=== PATIENT | male | born 2005 | race Caucasian/White ===

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

== ENCOUNTER 2024-11-13 13:11 | Emergency (ER) | payer OTHER, SELFPAY ==
--- NOTE | ~2024-11-13 | XR_ITS ---
EXAMINATION: XR foot RT min 3V, 11/13/2024 13:46 CDT HISTORY: RT foot pain[facility]bruising/swelling [facility]PARISON: No comparisons available. Findings: No acute fracture or malalignment. No significant degenerative changes. Soft tissues unremarkable. Impression: No acute fracture or malalignment. Reviewed, dictated and finalized at location A. Impression: No acute fracture or malalignment.
--- NOTE | ~2024-11-13 | XR_ITS ---
EXAMINATION: XR ankle RT min 3V, 11/13/2024 13:46 CDT HISTORY: RT lat ankle pain/bruising/swelling landed wrong yesterday COMPARISON: No comparisons available. Findings: No acute fracture or malalignment. No significant degenerative changes. Soft tissue swelling Impression: No acute fracture or malalignment. Reviewed, dictated and finalized at location A. Impression: No acute fracture or malalignment.
[2024-11-13 13:29] VITALS: BP 137/68; PULSE 104; RESP 18; TEMP 36.8; O2SAT 99
--- NOTE | 2024-11-13 13:38 | ED.LOWEXIN ---
HPI - Extremity Injury (Lower) General Chief Complaint: Extremity Injury, Lower Stated Complaint: Right Ankle Pain Patient presents to the [facility] accompanied by mother with complaints significant swelling and bruising to right ankle and foot that began last night. [facility] [employer] [facility] and on the [place] board and injured this ankle and foot. Patient has been using crutches and Fuentes wrap but area significantly painful with some numbness and tingling. Patient does also report fatigue, nasal congestion, nasal drainage, chills, headache that began 6 7 days ago. Several people around him are ill with similar symptoms no specific diagnoses. Using some [id number] medications for symptoms. Denies fever, shortness of breath, dizziness, nausea, vomiting, diarrhea. Related Data Allergies Allergy/AdvReac Type Severity Reaction Status Date / Time No Known Allergies Allergy Verified 11/13/24 13:45 Review of Systems Constitutional: Constitutional: Reports as per HPI, Reports chills, Reports fatigue, Denies fever(s) and Denies weakness Eyes: Eyes: Reports no additional eye complaints ENT: Reports as per HPI, Denies vertigo, Denies dizziness, Reports nasal congestion and Denies sore throat Comments: Nasal drainage, sinus pain Respiratory: Respiratory: Reports as per HPI, Reports chest congestion, Denies cough, Denies dyspnea and Denies wheezing Gastrointestinal: Gastrointestinal: Reports no additional gastrointestinal complaints Genitourinary: Genitourinary: Reports no additional male genitourinary complaints Musculoskeletal: Musculoskeletal: Reports as per HPI, Reports myalgias, Reports arthralgias, Reports joint swelling and Denies muscle cramps Integumentary/Breasts: Skin/Breast: Reports as per HPI, Denies pruritus, Denies rash and Denies skin ulcer Comments: bruising right foot and ankle Neurologic: Reports as per HPI, Denies vertigo, Denies dizziness, Reports headache(s), Reports numbness (right toes ) and Denies weakness Psychiatric: Psychiatric: Reports no additional psychiatric complaints Endocrine: Endocrine: Reports no additional endocrine complaints Hematologic/Lymphatic: Hematologic/Lymphatic: Reports no additional hematologic/lymphatic complaints Allergic/Immunologic: Allergic/Immunologic: Reports as per HPI Comments: seasonal allergies Exam Const: General: healthy appearing and no acute distress Nutritional Appearance: well nourished Orientation/consciousness: patient oriented x3 Limitations: no limitations HENMT: Head: normal to inspection Ears: external ears normal and TM's normal bilaterally Face/Nose/Sinus: Normal external nose present and nares abnormal Face and sinus: normal facial exam and sinus tenderness frontal Mouth: Yes Normal oral and palatal mucosa present, Yes lip normal and Yes moist mucous membranes Throat: posterior oropharynx abnormal Other: moderate erythema and edema. no exudate Neck: Neck: normal visual inspection and no lymphadenopathy Resp: Effort & Inspection: normal respiratory effort Auscultation: clear to auscultation bilaterally Cardio: Rate: regular rate Rhythm: regular rhythm Skin: General skin exam: No normal color Rashes: no rashes Wounds: no wounds Other: diffuse swelling and ecchymosis over right lateral ankle and foot Neuro: General: patient oriented x3 and moves all extremities Speech: normal speech Gait exam (Neuro): Normal gait present ( using crutches) Extrem: Right lower extremity: ankle Details: abnormal to inspection, tenderness, swelling, abnormal ROM and ecchymosis; achilles tendon exam normal and foot Details: normal capillary refill, abnormal to inspection, tenderness, toes with normal ROM, edema, ecchymosis, vascular exam Details: dorsalis pedis pulse present, posterior tibial pulse present and normal capillary refill and motor-sensory exam Details: two point discrimination normal, light-touch normal and pin-prick normal; ROM of toes normal Psych: Mental Status: mental status grossly normal Affect: normal affect Attitude: cooperative Course Course Level of Care: Express Care Visit Vital Signs Vital signs: Vital Signs Temperature 98.2 F 11/13/24 13:29 Pulse Rate 104 H 11/13/24 13:29 Respiratory Rate 18 11/13/24 13:29 Blood Pressure 137/68 11/13/24 13:29 Pulse Oximetry 99 11/13/24 13:29 Oxygen Delivery Room Air 11/13/24 13:29 Temperature 98.2 F 11/13/24 13:29 Pulse Rate 104 H 11/13/24 13:29 Respiratory Rate 18 11/13/24 13:29 Blood Pressure 137/68 11/13/24 13:29 Pulse Oximetry 99 11/13/24 13:29 Oxygen Delivery Room Air 11/13/24 13:29 MDM - Extremity Injury (Lower) MDM Narrative Medical decision making narrative: 6 days of cold-like symptoms worsening. Will place patient on amoxicillin continue OTC medications. X-rays of foot and ankle ordered while in Express Care The patient was evaluated by myself in the [facility]. History is obtained from patient who is an independent historian and physical exam was performed. Available medical records were reviewed at this time. Exam findings show no acute concerns or changes; patient is non-toxic appearing and is in no distress. Patient is appropriate for outpatient treatment and follow-up. I have evaluated and discussed social determinants of health with the patient that could potentially impact subsequent diagnosis and treatment plans. Differential diagnosis and treatment plan were discussed with the patient. Patient agrees with discussion and after shared medical decision making agrees with plan of care. All questions were answered to the patient's satisfaction. Differential Diagnosis Differential diagnosis: Likely ankle sprain and strain, puncture wound of foot, fracture of toe, ankle fracture and other ( COVID, flu, sinusitis, upper respiratory infection) Medical Records Attestation: I reviewed the patient's medical records. Lab Data Attestation: I reviewed the patient's lab results. Labs: Lab Results 11/13/24 Range/Units 14:00 POC Influenza A Ag Negative (Negative) POC Influenza B Ag Negative (Negative) POC SARS CoV-2 Ag Negative (Negative) Imaging Data Attestation: I personally reviewed and interpreted this imaging study as follows: My impression: no abnormalities or fracture noted in foot or ankle Radiologist's impression: Impression: No acute fracture or malalignment. Reviewed, dictated and finalized at location A. Discharge Plan Discharge Clinical Impression: Severe sprain of right ankle, Sinusitis Patient Disposition: Home Condition: Stable Instructions: Antibiotic Form, Ankle Sprain (ED), Ankle Strain (ED) Additional Instructions: Take the antibiotics as directed for the entire course. Do not miss any doses. What you are taking antibiotics and is recommended to take a probiotic or have yogurt daily to return the good gut bacteria to your system. This can also help with acute diarrhea while taking antibiotics. A can take 24-48 hours for the antibiotics the cake in to relieve your symptoms continue to take these medications to help with various symptoms: Tylenol or Motrin for pain, headache, or fever Flonase/fluticasone or Nasacort/triamcinolone nasal spray- helps with congestion and nasal drainage. Sudafed/pseudoephedrine helps with sinus pain and congestion. Caution with high blood pressure. Use a humidifier or vaporizer at night. Drink plenty of water. 8-10 glasses per day. Mucinex/guaifenesinas directed and be sure to take with 8oz of water. Warm compresses over the forehead and cheeks to promote sinus drainage. Return to urgent care or go to the ER for new or worsening symptoms. Follow up with Primary provider if not improved after 1 week. Xray showed no fracture. Minimize activities that aggravate the condition The RICE protocol. Follow the RICE protocol as soon as possible after your injury: Rest your affected limb by not walking on it/not using this. Ice should be immediately applied to keep the swelling down. It can be used for 20 to 30 minutes, three or four times daily. Do not apply ice directly to your skin. Gentle range of motion exercises as tolerated. Compression dressings, bandages or fuentes-wraps will immobilize and support your injured limb Elevate affected area above the level of your heart if possible as often as possible during the first 48 hours then as needed for increased swelling. Medication: Nonsteroidal anti-inflammatory drugs (NSAIDs) such as ibuprofen and naproxen can help control pain and swelling. Because they improve function by both reducing swelling and controlling pain, they are a better option for mild sprains than narcotic pain medicines. Please schedule a follow-up visit with your personal physician for further evaluation and treatment within 1week OR If your symptoms persist, change or worsen significantly before you can contact your personal physician then please, without delay, go to the emergency department for further evaluation. Patient Language: Mozambican Prescriptions: New amoxicillin 875 mg tablet 875 mg PO Q12H Qty: 20 0RF Follow-up/Referrals: PHYSICIAN,PAINT MIXER MACHINE [Primary Care Provider, Internal Medicine] Time of Disposition: 14:25
[2024-11-13 14:05] LABS: EDCOVIDSCREEN Negative (Negative); EDINFLUASCREEN Negative (Negative); EDINFLUBSCREEN Negative (Negative)
== END 2024-11-13 14:42 | disposition home or self-care (01) ==
PROVIDERS: Emergency Provider Nurse Practitioner Family
DX: M25.571 Pain in right ankle and joints of right foot (principal); J32.9 Chronic sinusitis, unspecified; Z20.822 Contact with and (suspected) exposure to COVID-19
CPT/HCPCS: 73610; 73630; 87426; 87804; 99213; G0463

== ENCOUNTER 2025-01-06 18:22 | Emergency (ER) | payer OTHER, SELFPAY ==
--- NOTE | ~2025-01-06 | CT_ITS ---
CT abdomen pelvis w con INDICATION:RLQ abd pain . COMPARISON: None. TECHNIQUE: Axial images of the abdomen and pelvis were obtained following infusion of 100 mL Isovue 300. Dose optimization technique was utilized. FINDINGS: The lung bases are clear. The liver parenchyma is unremarkable. No intrahepatic mass or ductal dilatation is evident. The gallbladder is unremarkable. The pancreas and spleen are normal in appearance. The adrenal glands are symmetric in size. The kidneys demonstrate symmetric uptake and excretion of contrast. No cystic mass is evident. There is no solid mass. There is no hydronephrosis. Evaluation of the stomach and bowel loops are limited due to lack of oral contrast. The appendix is normal in appearance. Bowel loops are normal in caliber. There are diffuse stool retention may represent constipation. The bladder and rectum are normal. No free intraperitoneal fluid or air is evident. There is no significant retroperitoneal lymphadenopathy. The aorta, visceral vessels and renal arteries demonstrate normal caliber and patency. The lower thoracic and lumbar vertebrae are in normal alignment. IMPRESSION: No acute abnormality is noted in the abdomen and pelvis. All CT scans at this facility are performed using low dose modulation techniques as appropriate to perform exam including the following: automated exposure control; use of iterative reconstruction technique; adjustment of the mA and/or kV according to patient size (this includes techniques or standardized protocols for targeted exams where dose is matched to indication/reason for exam). Reviewed, dictated and finalized at location S. ULTURIST IMPRESSION: No acute abnormality is noted in the abdomen and pelvis. All CT scans at this facility are performed using low dose modulation techniqu es as appropriate to perform exam including the following: automated exposure c ontrol; use of iterative reconstruction technique; adjustment of the mA and/or kV according to patient size (this includes techniques or standardized protocol s for targeted exams where dose is matched to indication/reason for exam).
[2025-01-06 18:34] VITALS: BP 130/61; PULSE 73; RESP 16; TEMP 36.6; O2SAT 100
--- NOTE | 2025-01-06 18:37 | ED.ABDPAIN ---
HPI - Abdominal Pain General Chief Complaint: Abdominal Pain <Kayla Sloan PA-C - Last Filed: 01/08/25 15:52> Stated Complaint: abd pain <Kayla Sloan PA-C - Last Filed: 01/08/25 15:52> Time Seen by Provider: 01/06/25 18:37 <Kayla Sloan PA-C - Last Filed: 01/08/25 15:52> Focused HPI: This is a 19 year old male that presents to the ER for right lower quadrant abdominal pain. Ongoing over the last couple of weeks. [facility] and prompted to be seen in the ER to r/o appendicitis. GENERAL: Well-appearing, well-nourished, and in no acute distress. HEAD: Normocephalic, atraumatic. CHEST: Clear to auscultation. ?No respiratory distress. HEART: Regular rate and rhythm.? NEURO: ?Alert and oriented x3. Patient screened in triage and initial orders placed.? ?Additional care and disposition to be based upon?diagnostic testing and treatment. <Kayla Sloan PA-C - Last Filed: 01/08/25 15:52> History of Present Illness HPI narrative: Agree with the HPI. Denies fevers, chills. Reports normal bowel movements. <DO Micheal Díaz Last Filed: 01/08/25 21:53> Related Data Allergies/Adverse Reactions: Allergies Allergy/AdvReac Type Severity Reaction Status Date / Time No Known Allergies Allergy Verified 01/06/25 18:37 <Kayla Sloan PA-C - Last Filed: 01/08/25 15:52> Review of Systems Review of Systems: Gen.: Denies fevers or chills Eyes: Denies eye pain or visual change ENT: Denies congestion Respiratory: Denies shortness of breath or cough CV: Denies chest pain or palpitations GI: As per HPI denies burning, urgency, frequency or hematuria Musculoskeletal: Denies back pain or muscle pain Neuro: Denies numbness, tingling, weakness or focal weakness Skin: Denies rash Except as documented, all other systems reviewed and negative <Indra Dupree DO - Last Filed: 01/08/25 21:53> All systems reviewed & are unremarkable except as noted in HPI and below <Kayla Sloan PA-C - Last Filed: 01/08/25 15:52> Exam Narrative: APPEARANCE: No acute distress, nontoxic, resting in bed EYES: EOMI HEENT: Normocephalic, atraumatic, OMM RESPIRATORY: No respiratory distress Clear to auscultation bilaterally with no rhonchi wheezing or rales. CARDIOVASCULAR: Regular rate and rhythm without murmurs rubs or gallops. ABDOMINAL: Soft, mild right lower quadrant tenderness to palpation, nondistended, no rebound or guarding MUSCULOSKELETAl: Moves all extremities. No clubbing, cyanosis or edema. NEURO: Awake and alert. Following commands, speech normal, no focal deficits SKIN:: Warm, dry. No rashes lesions or abrasions PSYCHIATRIC: Normal affect/mood, <Indra Dupree DO - Last Filed: 01/08/25 21:53> Course Vital Signs Vital signs: Vital Signs Temperature 98 F 01/06/25 18:34 Pulse Rate 73 01/06/25 18:34 Respiratory Rate 16 01/06/25 18:34 Blood Pressure 130/61 01/06/25 18:34 Pulse Oximetry 100 01/06/25 18:34 Oxygen Delivery Room Air 01/06/25 18:34 Temperature 98 F 01/06/25 18:34 Pulse Rate 63 01/06/25 20:47 Respiratory Rate 16 01/06/25 20:47 Blood Pressure 117/73 01/06/25 20:47 Pulse Oximetry 100 01/06/25 20:47 Oxygen Delivery Room Air 01/06/25 18:34 <Kayla Sloan PA-C - Last Filed: 01/08/25 15:52> Vital Signs Temperature 98 F 01/06/25 18:34 Pulse Rate 73 01/06/25 18:34 Respiratory Rate 16 01/06/25 18:34 Blood Pressure 130/61 01/06/25 18:34 Pulse Oximetry 100 01/06/25 18:34 Oxygen Delivery Room Air 01/06/25 18:34 Temperature 98 F 01/06/25 18:34 Pulse Rate 63 01/06/25 20:47 Respiratory Rate 16 01/06/25 20:47 Blood Pressure 117/73 01/06/25 20:47 Pulse Oximetry 100 01/06/25 20:47 Oxygen Delivery Room Air 01/06/25 18:34 <Indra Dupree DO - Last Filed: 01/08/25 21:53> MDM - Abdominal Pain MDM Narrative Medical decision making narrative: 19-year-old male Presenting for right lower quadrant abdominal pain for a couple weeks. On initial evaluation patient was in no acute distress afebrile, hemodynamic stable. Differentials include but are not limited to: Appendicitis, constipation, IBD, IBS, ureterolithiasis, enterocolitis, colitis, hernia Notable exam findings: Mild right lower quadrant tenderness palpation without rebound or guarding. Notable lab findings: CBC and CMP without significant abnormality. UA not consistent with a UTI. Notable imaging findings: CT abdomen/pelvis showed no acute abnormalities, may have shown some constipation. Suspect patient's pain may be due to constipation. He was educated on bowel regimen including MiraLax. He was advised follow-up with his PCP in the next week for re-evaluation. Patient and family were agreeable to this plan. Given strict return precautions. <Indra Dupree DO - Last Filed: 01/08/25 21:53> Medical Records Attestation: I reviewed the patient's medical records. <Indra Dupree DO - Last Filed: 01/08/25 21:53> Lab Data Attestation: I reviewed the patient's lab results. <Indra Dupree DO - Last Filed: 01/08/25 21:53> Result diagrams: 01/06/25 18:39 01/06/25 18:39 <Kayla Sloan PA-C - Last Filed: 01/08/25 15:52> Labs: Lab Results 01/06/25 01/06/25 Range/Units 18:39 19:14 WBC 6.5 (4.5-10.0) K/mm3 RBC 4.80 (4.6-6.20) M/mm3 Hgb 14.7 (14.0-18.0) g/dL Hct 42.1 (42.0-52.0) % MCV 87.7 (80-100) fl MCH 30.6 (26-34) pg MCHC 34.9 (32-36) g/dl RDW 12.0 (11.5-14.5) % Plt Count 244 (150-375) k/mm3 MPV 9.2 (7.4-10.4) fl Immature Gran % (Auto) 0.2 (0-0.5) % Neut % (Auto) 46.8 (45.5-73.1) % Lymph % (Auto) 45.1 H (18.3-44.2) % [place] % (Auto) 5.7 (2.6-8.5) % Eos % (Auto) 1.7 (0-4.4) % Baso % (Auto) 0.5 (0.2-1.2) % Lymph # (Auto) 2.92 (0.9-3.2) K/mm3 [place] # (Auto) 0.4 (0.1-0.6) K/mm3 Eos # (Auto) 0.1 (0-0.3) K/mm3 Baso # (Auto) 0.0 (0.0-0.1) K/mm3 Abs Immat Gran (auto) 0.01 (0.00-0.031) K/mm3 Absolute Neuts (auto) 3.0 (1.3-6.7) K/mm3 Absolute Nucleated RBC 0.000 (0.0-0.012) K/mm3 Nucleated RBC % 0.0 (0.0-0.2) % Sodium 138 (137-145) mmol/L Potassium 3.9 (3.4-5.0) mmol/L Chloride 104 (98-107) mmol/L Carbon Dioxide 28 (22-30) mmol/L Anion Gap 6 (4-12) mmol/L BUN 14 (9-20) mg/dL Creatinine 0.80 (0.7-1.3) mg/dL Estim Creat Clear Calc 145 ml/min Estimated GFR > 60 (59 - ) Glucose 89 (65-110) mg/dL Calcium 9.1 (8.4-10.2) mg/dL Total Bilirubin 0.5 (0.2-1.3) mg/dL AST 28 (17-59) U/L ALT 17 (6-50) U/L Alkaline Phosphatase 68 (38-126) U/L Total Protein 7.7 (6.3-8.2) g/dL Albumin 4.6 (3.5-5.1) g/dL Lipase 41 (23-300) U/L Urine Color Yellow (Yellow) Urine Appearance Clear (Clear) Urine pH 7.0 (5.0-9.0) Ur Specific [place] 1.023 (1.001-1.035) Urine Protein Negative (Negative) mg/dL Urine Glucose (UA) Negative (Negative) mg/dL Urine Ketones Negative (Negative) mg/dL Ur Blood (Man) Negative (Negative) Urine Nitrate Negative (Negative) Urine Bilirubin Negative (Negative) Urine Urobilinogen 2.0 H (<2.0) mg/dL Leukocyte Esterase Rfl Trace H (Negative) MARQUIS/UL Urine RBC 0-2 (0-2) /hpf Urine WBC 0-5 (0-3) /hpf Ur Squamous Epith Cells None seen (Few) /hpf Urine Bacteria None seen /hpf Urine Casts 0-2 <Kayla Sloan PA-C - Last Filed: 01/08/25 15:52> Lab Results 01/06/25 01/06/25 Range/Units 18:39 19:14 WBC 6.5 (4.5-10.0) K/mm3 RBC 4.80 (4.6-6.20) M/mm3 Hgb 14.7 (14.0-18.0) g/dL Hct 42.1 (42.0-52.0) % MCV 87.7 (80-100) fl MCH 30.6 (26-34) pg MCHC 34.9 (32-36) g/dl RDW 12.0 (11.5-14.5) % Plt Count 244 (150-375) k/mm3 MPV 9.2 (7.4-10.4) fl Immature Gran % (Auto) 0.2 (0-0.5) % Neut % (Auto) 46.8 (45.5-73.1) % Lymph % (Auto) 45.1 H (18.3-44.2) % [place] % (Auto) 5.7 (2.6-8.5) % Eos % (Auto) 1.7 (0-4.4) % Baso % (Auto) 0.5 (0.2-1.2) % Lymph # (Auto) 2.92 (0.9-3.2) K/mm3 [place] # (Auto) 0.4 (0.1-0.6) K/mm3 Eos # (Auto) 0.1 (0-0.3) K/mm3 Baso # (Auto) 0.0 (0.0-0.1) K/mm3 Abs Immat Gran (auto) 0.01 (0.00-0.031) K/mm3 Absolute Neuts (auto) 3.0 (1.3-6.7) K/mm3 Absolute Nucleated RBC 0.000 (0.0-0.012) K/mm3 Nucleated RBC % 0.0 (0.0-0.2) % Sodium 138 (137-145) mmol/L Potassium 3.9 (3.4-5.0) mmol/L Chloride 104 (98-107) mmol/L Carbon Dioxide 28 (22-30) mmol/L Anion Gap 6 (4-12) mmol/L BUN 14 (9-20) mg/dL Creatinine 0.80 (0.7-1.3) mg/dL Estim Creat Clear Calc 145 ml/min Estimated GFR > 60 (59 - ) Glucose 89 (65-110) mg/dL Calcium 9.1 (8.4-10.2) mg/dL Total Bilirubin 0.5 (0.2-1.3) mg/dL AST 28 (17-59) U/L ALT 17 (6-50) U/L Alkaline Phosphatase 68 (38-126) U/L Total Protein 7.7 (6.3-8.2) g/dL Albumin 4.6 (3.5-5.1) g/dL Lipase 41 (23-300) U/L Urine Color Yellow (Yellow) Urine Appearance Clear (Clear) Urine pH 7.0 (5.0-9.0) Ur Specific [place] 1.023 (1.001-1.035) Urine Protein Negative (Negative) mg/dL Urine Glucose (UA) Negative (Negative) mg/dL Urine Ketones Negative (Negative) mg/dL Ur Blood (Man) Negative (Negative) Urine Nitrate Negative (Negative) Urine Bilirubin Negative (Negative) Urine Urobilinogen 2.0 H (<2.0) mg/dL Leukocyte Esterase Rfl Trace H (Negative) MARQUIS/UL Urine RBC 0-2 (0-2) /hpf Urine WBC 0-5 (0-3) /hpf Ur Squamous Epith Cells None seen (Few) /hpf Urine Bacteria None seen /hpf Urine Casts 0-2 <Indra Cornforth, DO - Last Filed: 01/08/25 21:53> Imaging Data Attestation: I personally reviewed and interpreted this imaging study as follows: <DO Micheal Díaz Last Filed: 01/08/25 21:53> Radiologist's impression: ITS Impressions Abdomen/Pelvis CT 01/06/25 19:22 IMPRESSION: No acute abnormality is noted in the abdomen and pelvis. All CT scans at this facility are performed using low dose modulation techniques as appropriate to perform exam including the following: automated exposure control; use of iterative reconstruction technique; adjustment of the mA and/or kV according to patient size (this includes techniques or standardized protocols for targeted exams where dose is matched to indication/reason for exam). <Kayla Sloan PA-C - Last Filed: 01/08/25 15:52> ITS Impressions Abdomen/Pelvis CT 01/06/25 19:22 IMPRESSION: No acute abnormality is noted in the abdomen and pelvis. All CT scans at this facility are performed using low dose modulation techniques as appropriate to perform exam including the following: automated exposure control; use of iterative reconstruction technique; adjustment of the mA and/or kV according to patient size (this includes techniques or standardized protocols for targeted exams where dose is matched to indication/reason for exam). <DO Micheal Díaz Filed: 01/08/25 21:53> Discharge Plan Discharge Clinical Impression: Abdominal pain Qualifiers: Abdominal location: right lower quadrant Qualified Code(s): R10.31 - Right lower quadrant pain <KATINA Melgar Last Filed: 01/08/25 15:52> Patient Disposition: Home <KATINA Melgar Last Filed: 01/08/25 15:52> Condition: Stable <KATINA Melgar Last Filed: 01/08/25 15:52> Instructions: Antibiotic Form, Abdominal Pain (ED) <KATINA Melgar Last Filed: 01/08/25 15:52> Additional Instructions: CT scan did not show any evidence of appendicitis or other intra-abdominal abnormalities. It is unclear what the source of your pain is. You may take Tylenol and ibuprofen for the pain. Consider MiraLax as there was some constipation noted on the scan. You were given a referral to Dr. Silva, follow-up with his office in the next week for re-evaluation if needed. Return to the ED for any new or worsening symptoms. <Kayla Sloan PA-C - Last Filed: 01/08/25 15:52> Patient Language: Solomon Islander <Kayla Sloan PA-C - Last Filed: 01/08/25 15:52> Prescriptions: No Action amoxicillin 875 mg tablet 875 mg PO Q12H Qty: 20 0RF <Kayla Sloan PA-C - Last Filed: 01/08/25 15:52> Follow-up/Referrals: Reno Silva MD [Physician, Family Practice] PHYSICIAN,PERIODONTIST [Primary Care Provider, Internal Medicine] <Kayla Sloan PA-C - Last Filed: 01/08/25 15:52>
[2025-01-06 18:45] LABS: Hematocrit 42.1 % (42.0-52.0); Hemoglobin 14.7 g/dL (14.0-18.0); Immature Granulocyte Percent A 0.2 % (0-0.5); Lymphocytes Absolute Auto 2.92 K/mm3 (0.9-3.2); Mean Corpuscular HGB Conc 34.9 g/dl (32-36); Mean Corpuscular Hemoglobin 30.6 pg (26-34); Mean Corpuscular Volume 87.7 fl (80-100); Nucleated Red Blood Cells Absolute Auto 0.000 K/mm3 (0.0-0.012); Nucleated Red Blood Cells Perc 0.0 % (0.0-0.2); Platelet Count Result 244 k/mm3 (150-375); Red Blood Count 4.80 M/mm3 (4.6-6.20); White Blood Count 6.5 K/mm3 (4.5-10.0)
[2025-01-06 19:00] LABS: Alanine Aminotransferase 17 U/L (6-50); Albumin Level 4.6 g/dL (3.5-5.1); Alkaline Phosphatase 68 U/L (38-126); Anion Gap 6 mmol/L (4-12); Aspartate Amino Transferase 28 U/L (17-59); Bilirubin,Total 0.5 mg/dL (0.2-1.3); Blood Urea Nitrogen 14 mg/dL (9-20); Calcium 9.1 mg/dL (8.4-10.2); Carbon Dioxide 28 mmol/L (22-30); Chloride 104 mmol/L (98-107); Estimated CRCL calculation 145 ml/min; Estimated Glomerular Filt Rate > 60; Glucose 89 mg/dL (65-110); Lipase 41 U/L (23-300); Potassium 3.9 mmol/L (3.4-5.0); Sodium 138 mmol/L (137-145); Total Protein 7.7 g/dL (6.3-8.2)
[2025-01-06 19:23] LABS: Add Urine Microscopic? YES; Appearance Urine Clear (Clear); Glucose Urine UA Negative (Negative); Leukocyte Esterase Ur Trace LEU/UL (Negative); Nitrate Urine Negative (Negative); Non Pathogenic Casts 0-2; Specific Grav Ur 1.023 (1.001-1.035)
[2025-01-06 20:47] VITALS: BP 117/73; PULSE 63; RESP 16; O2SAT 100
--- OUTSIDE RECORDS SUMMARY | 2025-01-06 21:14 | XMS_ITS | Clinical Summary ---
Author Organization [facility] Address [facility] [place] [address] Care Team Providers Care Director Teen Post Name Role Phone None, Provider Primary Care Provider Unavaila ble Allergies No known active allergies Medications No known medications Encounters Date Type Department Care Team Description 01/06/2025 Telephone [facility], ProviderMD Concerns 11/03/2024 1:00 PM CDT [facility] [place] [address] Herman Muñoz PA Physical (Volleyball and cheer) 11/03/2024 Travel from Last 3 Months Social History Tobacco Use Types Packs/Day Years Used Date Smoking Tobacco: Never Assessed Sex and Gender Information Value Date Recorded Sex Assigned at Male 11/03/2024 12:46 PM CDT Legal Sex Male 12:45 PM CDT Gender Identity Not on file Sexual Orientation Not on file Last Filed Vital Signs Vital Sign Reading Time Taken Comments Blood Pressure 108/68 11/07/2024 12:02 PM CDT Pulse 72 11/07/2024 12:02 PM CDT Temperature 36.7 C (98.1 F) 11/07/2024 12:02 PM CDT Respiratory Rate - - Oxygen Saturation 99% 11/07/2024 12:02 PM CDT Inhaled Oxygen Concentration - - Weight 83.5 kg (184 lb) 11/07/2024 12:02 PM CDT Height 182.9 cm (6') 11/07/2024 12:02 PM CDT Body Mass Index 24.95 11/07/2024 12:02 PM CDT Plan of Treatment Health Maintenance Due Date Last Done Comments Annual Physical 02/23/2007 HPV Vaccines (1 - Male 3-dos e series) 02/23/2019 Meningococcal B Vaccine (1 o f 2 - Standard) 2020 Hepatitis C 02/23/2022 DTaP, Tdap and Td Vaccines ( 1 - Tdap) 02/23/2023 Hepatitis B Vaccines (1 of 3 - 19+ 3-dose series) 02/23/2023 PHQ-2 (Physician [place]) 03/03/2024 COVID-19 Vaccine (1 - 2024-2 6 season) 2024 Influenza Adult (#1) 2024 Hepatitis A Vaccines Aged Out No long er eligible based on patient's age to complete this topic Meningococcal Vaccine Aged Out No clayton poncho eligible based on patient's age to complete this topic Pneumococcal Vaccine: Pediat rics (0 to 5 Years) and At-Risk Patients (6 to 49 Years) Aged Out No longer eligible b ased on patient's age to complete this topic RSV Immunizations Under 20 Months Aged Out No longer eligible based on patient's age to complete this topic Procedures Procedure Name Priority Date/Time Associated Diagnosis Comments SICKLE CELL TEST Routine 11/03/2024 1:43 PM CDT Preventive measure from Last 3 Months Results * SICKLE CELL TEST (11/03/2024 1:43 PM CDT) HGB S SCREEN NEGATIVE NEGATIVE 11/03/2024 9:19 PM CDT [facility] Comment: NOTE: THIS SICKLE SCREEN SOLUBILITY PROCEDURE IS NOT SPECIFIC FOR HEMOGLOBIN S. IT IS RECOMMENDED THAT POS RESULTS BE FURTHER EVALUATED BY HEMOGLOBIN ELECTROPHORESIS TO DIFFERENTIATE ABNORMAL HEMOGLOBINS. 11/03/2024 1:43 PM CDT us [facility] Final Result [facility] [address] [place] [address], [place] [phone] from Last 3 Months Care Teams Director Teen Post Relationship Specialty Start Date End Date None, Provider, MD PCP - General UNKNOWN PHYSICIAN SPECIALTY 11/03/24
--- OUTSIDE RECORDS SUMMARY | 2025-01-06 21:14 | XMS_ITS | Clinical Summary ---
Author Organization [facility] Address [address] [place] [address] Care Team Providers Care Head Of Mathematics Name Role Phone No, Physician Primary Care Provider [phone] Allergies No known active allergies Medications mupirocin (BACTROBAN) 2 % ointment Apply topically daily Applied with each dressing change. Collaborating physician Tray Field MD 22 g 1 5 Active acetaminophen- codeine (TYLENOL with CODEINE #4) 300-60 mg per tabletIndicati ons:Abscess of left buttock Take 1 tablet by mouth every 6 (six) hours as needed for pain P.r.n. pain not relieved by [id number] ibuprofen or naproxen. Take as directed with food. Collaborating physician Tray Field MD 15 tablet 5 Active Active Problems Problem Noted Date Diagnosed Date Abscess of left buttock 07/19/2024 Social History Tobacco Use Types Packs/Day Years Used Date Smoking Tobacco: Never Assessed Personal Safety Answer Date Recorded Have you ever been in or are you currently in a harmful physical or emotional relationship or is someone making you feel afraid or unsafe? Denies 07/19/2024 Sex and Gender Information Value Date Recorded Sex Assigned at Not on file Legal Sex Male 10:09 PM CDT Gender Identity Not on file Sexual Orientation Not on file Last Filed Vital Signs Vital Sign Reading Time Taken Comments Blood Pressure 130/85 07/19/2024 6:31 PM CDT Pulse 80 07/19/2024 6:31 PM CDT Temperature 37.1 C (98.8 F) 07/19/2024 4:28 PM CDT Respiratory Rate 20 07/19/2024 6:31 PM CDT Oxygen Saturation 98% 07/19/2024 6:31 PM CDT Inhaled Oxygen Concentration - - Weight 81.6 kg (180 lb) 07/19/2024 2:16 PM CDT Height 182.9 cm (6') 08/28/2023 9:55 PM CDT Body Mass Index 24.41 08/28/2023 9:55 PM CDT Plan of Treatment Health Maintenance Due Date Last Done Comments Depression Screening 2004 Hepatitis C Screening 2004 Regular Well Visit/Exam 18-64 02/23/2022 Meningococcal B Vaccine (2 o f 2 - Bexsero SCDM 2-dose series) 05/21/2022 11/21/2021 Covid-19 Vaccine (4 - 2024-2 6 season) 2024 11/21/2021, 07/16/2020, 06/25/2020 Influenza Vaccine (#1) 2024 11/21/2021, 2012 DTaP/Tdap/Td Vaccine (7 - Td or Tdap) 07/20/2025 07/21/2015, 10/26/2008, 07/08/2006, Additional history exists Hepatitis B Screening Completed 03/08/2005 , 2004, 2004, Additional history exists Pneumococcal vaccine <65 Completed 006, 2004, 2004, Additional history exists Varicella Vaccines Completed 10/26/2008, 03/08/2005 HPV Vaccines Completed 08/13/2017, 07/21/2015 Meningococcal Vaccine Completed 11/09/2020, 016 Insurance [employer] [facility] Care Teams Head Of Mathematics Relationship Specialty Start Date End Date No, Physician PCP - General 08/28/23
--- OUTSIDE RECORDS SUMMARY | 2025-01-06 21:14 | XMS_ITS | Encounter Summary ---
Author Organization [facility] Address [facility] [place] [address] Care Team Providers Care Aquatic Performer Name Role Phone None, Provider MD Primary Care Provider Unavaila ble Reason for Visit * Reason Onset Date Comments Concerns 01/06/2025 Encounter Details Date Type Department Care Team (Late st Contact Info) Description 01/06/2025 Telephone [facility] DEFAULT None, Provider, Concerns Social History Tobacco Use Types Packs/Day Years Used Date Smoking Tobacco: Never Assessed Sex and Gender Information Value Date Recorded Sex Assigned at Male 11/03/2024 12:46 PM CDT Legal Sex Male 12:45 PM CDT Gender Identity Not on file Sexual Orientation Not on file documented as of this encounter Progress Notes * Soha Curtis LPN - 01/06/2025 2:08 PM CST Patient calling reporting 2 week history of RLQ pain. Patient states pain is worse than when it started. Tender to touch and pain with movement. Denies fever, chills, body aches, nausea, vomiting. I spoke with Kemi Dominguez RN HOSPITAL RECRUITER-C; ED for evaluation. Patient told. Aware to go to ED for evaluation. ORIAL SPECIALIST documented in this encounter Plan of Treatment Not on file documented as of this encounter Visit Diagnoses Not on filedocumented in this encounter Care Teams Aquatic Performer Relationship Specialty Start Date End Date None, Provider, PCP - General UNKNOWN PHYSICIAN SPECIALTY 11/03/24 documented as of this encounter
--- OUTSIDE RECORDS SUMMARY | 2025-01-06 21:14 | XMS_ITS | Clinical Summary ---
Author Organization [facility] Address [address] [place] [address] Care Team Providers Care Observation Assistant Name Role Phone Mckayla Enrique MD Primary Care Provider [phone] Source Comments [facility],non-owned Affiliates and Associated Physician Practices is amultiple site organization consisting of ambulatory clinics and hospital sitesin [place], [place], [place] and [place]. This disclosure is being madepursuant to the Care Everywhere program and may not contain all information available regarding this patient. Last updated 17.[facility] Allergies No known active allergies Medications * Be aware that medications may not be up to date on this document. Alwaysverify current medications with the patient. No known medications Active Problems No known active problems Social History Tobacco Use Types Packs/Day Years Used Date Smoking Tobacco: Never Smokeless Tobacco: Never Alcohol Use Standard Drinks/Week Comments Never 0 (1 standard drink = 0.6 oz pur e alcohol) PHQ-2 Answer Date Recorded PHQ2 TOTAL SCORE 0 11/27/2020 Sex and Gender Information Value Date Recorded Sex Assigned at Not on file Legal Sex Male 8:30 AM MEDICAL FIELD REPRESENTATIVE Gender Identity Not on file Sexual Orientation Not on file Last Filed Vital Signs Vital Sign Reading Time Taken Comments Blood Pressure 127/63 11/27/2020 7:20 PM CDT Pulse 71 11/27/2020 7:20 PM CDT Temperature 36.9 C (98.4 F) 11/27/2020 7:20 PM CDT Respiratory Rate 20 11/27/2020 7:20 PM CDT Oxygen Saturation 98% 11/27/2020 7:20 PM CDT Inhaled Oxygen Concentration - - Weight 75.7 kg (166 lb 14.2 oz) 11/27/2020 7:20 PM CDT Height 178.9 cm (5' 10.43) 05/09/2020 3:[address] Body Mass Index - - Plan of Treatment Health Maintenance Due Date Last Done Comments HIV SCREENING 02/23/2019 HPV VACCINE (1 - Male 3-dose series) 02/23/2019 MENINGOCOCCAL (Group B) VACCINE SHARED DECISION-MAKING (1 of 2 - Standard) 2020 HEPATITIS C SCREENING 02/19/2022 DTAP/TDAP/TD VACCINES (1 - Tdap) 02/23/2023 HEPATITIS B VACCINE (1 of 3 - 19+ 3-dose series) 02/23/2023 DEPRESSION SCREENING 03/03/2024 COVID-19 VACCINE (3 - 2024-2 6 season) 2024 07/16/2020, 06/25/2020 INFLUENZA VACCINE (#1) 2024 ZOSTER VACCINE (1 of 2) 02/23/2054 HIB VACCINE Aged Out No longer eligi ble based on patient's age to complete this topic MENINGOCOCCAL GROUPS A/C/Y/W VACCINE Aged Out No longer eligible b ased on patient's age to complete this topic PNEUMOCOCCAL VACCINE Aged Out No long er eligible based on patient's age to complete this topic Insurance [facility] Care Teams Observation Assistant Relationship Specialty Start Date End Date Mckayla Enrique MD [address] [place] [address] PCP - General Pediatrics 05/09/20
== END 2025-01-06 20:48 | disposition home or self-care (01) ==
LOC: ANHED 20:08
PROVIDERS: Physician Assistant; Emergency Provider Student in an Organized Health Care Education/Training Program
DX: R10.31 Right lower quadrant pain (principal)
CPT/HCPCS: 36415; 74177; 80053; 81001; 83690; 85025; 99284; Q9967